=== PATIENT | female | born 1955 | race Caucasian/White ===

== ENCOUNTER 2022-06-16 15:18 | Outpatient (CLI) | payer MEDICARE ==
--- NOTE | 2022-06-16 20:19 | XRAY Report ---
PROCEDURE: Toe(s) LT INDICATIONS: LEFT TOE CONTUSION TECHNIQUE: AP view of the foot and 2 views of the fifth toe acquired. COMPARISON: None. FINDINGS: Bones: Minimally displaced transverse fracture is seen at the base of the fifth proximal phalanx. Per iosteal new bone formation is seen, which suggests healing changes and at least subacute fracture jing ing. No suspicious bony lesions. Soft tissues: No suspicious soft tissue densities. IMPRESSION: Minimally displaced transverse fracture of the base of the fifth proximal phalanx with healing change s, likely subacute. Reviewed by: Merrill Perdomo MD on 06/16/2022 8:17 PM PDT Approved by: Merrill Perdomo MD on 06/16/2022 8:17 PM PDT Station ID: [id number]
== END 2022-06-16 15:19 | disposition home or self-care (01) ==
LOC: DI.N 15:18
PROVIDERS: ATTEND Family Medicine
DX: S90.122A Contusion of left lesser toe(s) without damage to nail, initial encounter (principal); S92.512A Displaced fracture of proximal phalanx of left lesser toe(s), initial encounter for closed fracture
CPT/HCPCS: 73660